=== PATIENT | male | born 1960 | race Caucasian/White ===

== ENCOUNTER 2017-11-11 19:20 | Inpatient (IN) | payer BC ==
[~2017-11-11] VITALS: Ht 180.3 cm; Wt 91.2 kg
[2017-11-11 20:30] VITALS: Ht 180.3 cm; Wt 91.2 kg
[2017-11-12 00:14] LABS: UA SPECIFIC GRAVITY 1.025 (1.005-1.035); microscopic required? YES; urine erythrocyte TRACE (NEGATIVE)
[2017-11-12 00:29] LABS: CALCIUM 8.7 mg/dL (8.5-10.1); CARBON DIOXIDE 29.4 mmol/L (21-32); CHLORIDE SERUM 99 mmol/L (98-107); CREATININE SERUM 0.9 mg/dL (0.7-1.3); GFR1 > 60 mL/min; GLUCOSE SERUM 137 mg/dL (74-106); POTASSIUM SERUM 3.7 mmol/L (3.5-5.1); SODIUM SERUM 138 mmol/L (136-145)
[2017-11-12 00:34] LABS: ALKALINE PHOSPHATASE 71 U/L (46-116); ALT/SGPT 28 U/L (16-63); AST/SGOT 16 U/L (15-37); BILIRUBIN TOTAL 0.9 mg/dL (0.20-1.00); LIPASE 160 IU/L (73-393); TOTAL PROTEIN, SERUM 7.8 g/dL (6.4-8.2)
[2017-11-12 00:35] LABS: PLATELET COUNT 296 x10^3mcL (130-400); RED CELL DISTRIBUTION WIDTH 13.2 % (11.5-14.5)
[2017-11-12 00:39] LABS: BASOPHIL % 0 % (0-2)
[2017-11-12] MEDS ORDERED: METOPROLOL SUCC25 M2 PO (03:44)
[2017-11-12 04:07] LABS: T3 TOTAL 0.84 ng/mL
[2017-11-12 04:08] LABS: FREE T4 0.94 ng/dL (0.76-1.46)
[2017-11-12 04:11] LABS: CHOLESTEROL/HDL RATIO 2.4; FREE THYROXINE INDEX 1.4 ug/dL (1.4-4.5); MAGNESIUM 1.9 mg/dL (1.8-2.4); PHOSPHOROUS 3.7 mg/dL (2.5-4.9); T4(THYROXINE) 3.9 ug/dL (4.7-13.3)
[2017-11-12 04:39] VITALS: BP 137/77
[2017-11-12 05:56] LABS: CALCIUM 8.4 mg/dL (8.5-10.1); CARBON DIOXIDE 27.7 mmol/L (21-32); CHLORIDE SERUM 100 mmol/L (98-107); GFR1 > 60 mL/min; GLUCOSE SERUM 163 mg/dL (74-106); POTASSIUM SERUM 3.6 mmol/L (3.5-5.1); SODIUM SERUM 132 mmol/L (136-145)
[2017-11-12 05:59] LABS: PLATELET COUNT 284 x10^3mcL (130-400); RED CELL DISTRIBUTION WIDTH 13.1 % (11.5-14.5)
[2017-11-12 06:29] LABS: BAND NEUTROPHIL 0 % (0-10); BASOPHIL 0 % (0-2); MONOCYTE 5 % (0-7); SEGMENTED NEUTROPHILS 89 % (37-75)
[2017-11-12 06:30] LABS: rbc morphology (normal/abnorm) NORMAL (NORMAL)
[2017-11-12 06:31] LABS: PLATELET MORPHOLOGY PLATELETS NORMAL
[2017-11-12 12:05] VITALS: BP 122/72
[2017-11-12 12:16] VITALS: BP 122/72
[2017-11-12 16:27] VITALS: BP 106/61
[2017-11-12 19:24] LABS: AMPHETAMINE QUAL UR NONE DETECTED (NEG <=1000)
[2017-11-12 20:49] VITALS: BP 106/63
[2017-11-13 05:16] VITALS: BP 96/53
[2017-11-13 07:46] LABS: BASOPHIL % 0.1 % (0-2); PLATELET COUNT 233 x10^3mcL (130-400); RED CELL DISTRIBUTION WIDTH 13.6 % (11.5-14.5)
[2017-11-13 08:41] LABS: CALCIUM 8.3 mg/dL (8.5-10.1); CARBON DIOXIDE 26.2 mmol/L (21-32); CHLORIDE SERUM 105 mmol/L (98-107); GFR1 > 60 mL/min; GLUCOSE SERUM 118 mg/dL (74-106); PHOSPHOROUS 2.9 mg/dL (2.5-4.9); POTASSIUM SERUM 3.8 mmol/L (3.5-5.1); SODIUM SERUM 139 mmol/L (136-145)
[2017-11-13 09:15] VITALS: BP 119/61
[2017-11-13 12:32] VITALS: BP 106/65
[2017-11-13] MEDS ORDERED: COL100 PO (14:48)
[2017-11-13] MEDS ORDERED: LAC PO (14:48)
[2017-11-13] MEDS ORDERED: NORCO1 TA2 PO (14:50)
[2017-11-13 16:27] VITALS: BP 120/73
[2017-11-13 21:11] VITALS: BP 106/65
[2017-11-14 05:18] VITALS: BP 118/71
[2017-11-14 07:22] LABS: BASOPHIL % 0.3 % (0-2); PLATELET COUNT 233 x10^3mcL (130-400); RED CELL DISTRIBUTION WIDTH 13.7 % (11.5-14.5)
[2017-11-14 08:16] LABS: CALCIUM 8.3 mg/dL (8.5-10.1); CARBON DIOXIDE 25.5 mmol/L (21-32); CHLORIDE SERUM 106 mmol/L (98-107); CREATININE SERUM 0.9 mg/dL (0.7-1.3); GFR1 > 60 mL/min; GLUCOSE SERUM 128 mg/dL (74-106); MAGNESIUM 1.9 mg/dL (1.8-2.4); PHOSPHOROUS 2.6 mg/dL (2.5-4.9); POTASSIUM SERUM 3.7 mmol/L (3.5-5.1); SODIUM SERUM 137 mmol/L (136-145)
[2017-11-14 10:11] VITALS: BP 127/73
[2017-11-14 12:30] VITALS: BP 127/73
== END 2017-11-14 15:55 | disposition home or self-care (01) | DRG 418 ==
LOC: ED 19:20 → DU 11-12 02:38 → MU 11-13 15:06
PROVIDERS: Emergency Medicine; Family Medicine; Student in an Organized Health Care Education/Training Program; Surgery
PROC: 0FT44ZZ Resection of Gallbladder, Percutaneous Endoscopic Approach (ICD-10-PCS; principal; 2017-11-12 08:30)
DX: K80.62 Calculus of gallbladder and bile duct with acute cholecystitis without obstruction (principal); D68.69 Other thrombophilia; E87.1 Hypo-osmolality and hyponatremia; E11.65 Type 2 diabetes mellitus with hyperglycemia; I10 Essential (primary) hypertension; E02 Subclinical iodine-deficiency hypothyroidism; Z59.0 Homelessness; Z68.28 Body mass index [BMI] 28.0-28.9, adult; D64.9 Anemia, unspecified
CPT/HCPCS: 82962; 83880; 84439; 94150; J0330; J1170; J1885; J1956; J2250; J2405; J2543; J2704; J2710; J3010; J3490; J7030; J7120; Q0092